=== PATIENT | male | born 1965 | race Caucasian/White ===

== ENCOUNTER → 2023-06-14 07:33 | Outpatient (REF) | payer BC, SELFPAY | LOC: HWRAD 07:33 | PROVIDERS: ATTENDING PHYSICIAN Specialist; FAMILY PHYSICIAN Family Medicine | DX: K82.4 Cholesterolosis of gallbladder (principal) | CPT/HCPCS: 76700 ==

== ENCOUNTER → 2025-04-10 12:34 | Outpatient (REF) | payer BC, SELFPAY | LOC: RAD 12:34 | PROVIDERS: ATTENDING PHYSICIAN Family Medicine; FAMILY PHYSICIAN Family Medicine | DX: M54.16 Radiculopathy, lumbar region (principal); M25.552 Pain in left hip | CPT/HCPCS: 72110; 73523 ==